=== PATIENT | male | born 1975 | race Caucasian/White ===

== ENCOUNTER 2017-05-21 00:40 | Emergency (ER) | payer OTHER ==
[~2017-05-21] VITALS: Ht 182.9 cm; Wt 87.8 kg
--- NOTE | 2017-05-21 00:46 | EMERGENCY ROOM VISIT NOTE ---
History Report prepared by Chuckibroney: Dipak Wilson Under the Supervision of: Dr. Suki Martínez D.O. First contact with patient: 00:42 Stated Complaint: ALCOHOL History of Present Illness HPI is limited due to an altered mental status secondary to alcohol intoxication.The patient is a 41 year old male who presents to the Emergency Room via EMS with complaints of a recent alcohol overdose. EMS states that the patient was found unresponsive while [facility]. EMS states that the patient drank an unknown amount of alcohol at [facility]. Patient is from [place], [place]. Source of History: patient History Limited By: AMS (secondary to alcohol intoxication) Review of Systems ROS is limited due to an altered mental state secondary to alcohol intoxication. Past Medical & Surgical Past medical & surgical history limited due to an altered mental state secondary to alcohol intoxication. Family History Family history limited due to an altered mental state secondary to alcohol intoxication. Social History Housing Status: lives with family Occupation Status: employed Social history limited due to an altered mental state secondary to alcohol intoxication. Current/Historical Medications No Active Prescriptions or Reported Meds Allergies Coded Allergies: No Known Allergies (Unverified , 05/21/17) Physical Exam Vital Signs Date Time Temp Pulse Resp B/P (MAP) Pulse Ox O2 Delivery O2 Flow Rate FiO2 05/21/17 08:47 80 16 102/76 95 Room Air 05/21/17 06:56 97 18 123/91 96 Room Air 05/21/17 05:33 125 20 140/92 96 Room Air 05/21/17 04:39 106 05/21/17 04:20 112 20 117/75 99 Room Air 05/21/17 02:18 111 18 132/88 96 Room Air 05/21/17 01:01 109 05/21/17 00:48 36.7 118 18 130/81 92 Room Air Physical Exam General: Patient is unresponsive and smells of alcohol. HEENT: Head - normocephalic and atraumatic Pupils are equal, round, and reactive to light. Extraocular eye muscles are intact, and sclera are anicteric. Nose - moist nasal mucosa without discharge. Mouth - moist buccal mucosa. Oropharynx is nonerythematous and there is no tonsillar exudate or edema noted. Neck: Supple; no JVD, nuchal rigidity, cervical lymphadenopathy. Heart: Regular rate and rhythm. There is a normal S1 and S2 with no murmurs, clicks, or gallops appreciated. Lungs: Clear to auscultation bilaterally with no wheezes, rales, or rhonchi. Arms: Bruise on left bicep and abrasion of dorsal right hand. Abdomen: Soft, completely nontender, nondistended, with good bowel sounds. There are no palpable pulsatile masses or hepatosplenomegaly. There is no guarding, rigidity, or rebound noted. Extremities: No evidence of cyanosis, clubbing, or edema. There are easily palpable peripheral pulses. Skin: warm and dry with good turgor and no rashes. Medical Decision & Procedures Laboratory Results 05/21/17 00:49 Test 05/21/17 00:45 2 00:49 Bedside Glucose 91 mg/dl (70-99) Anion Gap 9.0 mmol/L (3-11) Est Creatinine Clear Calc Drug Dose 99.8 ml/min Estimated GFR () 99.0 Estimated GFR (Non- 85.4 BUN/Creatinine Ratio 12.2 (10-20) Calcium Level 8.1 mg/dl (8.5-10.1) Ethyl Alcohol mg/dL 357.0 mg/dl (0-3) Laboratory results per my review. ED Course 0035: Past medical records reviewed. The patient was evaluated in room A12B. A complete history and physical exam was performed. The patient was placed in the prone position to avoid aspiration. Labs were drawn as above. He was observing the monitoring specialist and pulse oximeter. 0215: Patient is sleeping with stable vital signs. 0355: The patient is unresponsive and hemodynamically stable. 0521: Patient is sleeping with stable vital signs. 0830: Upon reevaluation, the patient is resting comfortably. I discussed findings and results with him. He verbalized agreement of the treatment plan. He was discharged home. Medical Decision The patient is a 41 year old male who presents to the ED with a recent alcohol overdose. Differential diagnosis includes alcohol overdose, drug intoxication, hypoglycemia, and head injury. Lab results show alcohol = 357, potassium = 3.3 , normal renal function and glucose This is a 41-year-old male patient who was brought to the emergency department tonight after consuming too much alcohol. The patient was unresponsive throughout his stay here in the ER. Once some time had passed and he was more sober, I was able to wake him up. He woke up enough to tell me that he works at [employer]. I suggested that he avoid such excessive alcohol use in the future. He will need to drink plenty of clear liquids and rest Medication Reconcilliation Current Medication List: was personally reviewed by me Blood Pressure Screening Patient's blood pressure: Normal blood pressure Blood pressure disposition: Did not require urgent referral Impression Primary Impression: Alcohol overdose Scribe Attestation The scribe's documentation has been prepared under my direction and personally reviewed by me in its entirety. I confirm that the note above accurately reflects all work, treatment, procedures, and medical decision making performed by me. Departure Information Dispostion Home / Self-Care Prescriptions No Active Prescriptions or Reported Meds Forms HOME CARE DOCUMENTATION FORM, IMPORTANT VISIT INFORMATION Patient Instructions ED Overdose Alcohol, [facility]: [employer] Students and Alcohol Related Visits, My [facility] Additional Instructions Rest. Take plenty of fluids today and a bland diet Avoid such excessive alcohol use in the future Take tylenol for headache Problem Qualifiers Primary Impression: Alcohol overdose Encounter type: initial encounter Injury intent: accidental or unintentional Qualified Codes: T51.91XA - Toxic effect of unspecified alcohol , accidental (unintentional), initial encounter
[2017-05-21 00:48] VITALS: TEMP 36.7; Ht 182.9 cm; Wt 87.8 kg
[2017-05-21 01:18] LABS: CALCIUM 8.1 mg/dl (8.5-10.1); CREATININE 1.08 mg/dl (0.60-1.40); POTASSIUM 3.3 mmol/L (3.5-5.1)
[2017-05-21 08:47] VITALS: BP 102/76; PULSE 80; O2SAT 95
== END 2017-05-21 08:58 | disposition home or self-care (01) ==
LOC: C.EDA 00:40 → EDBD 00:40 → C.EDA 08:58
DX: T51.91XA Toxic effect of unspecified alcohol, accidental (unintentional), initial encounter (principal); X58.XXXA Exposure to other specified factors, initial encounter; S40.022A Contusion of left upper arm, initial encounter; S60.511A Abrasion of right hand, initial encounter